=== PATIENT | male | born 1950 | race Caucasian/White ===

== ENCOUNTER → 2020-08-16 07:56 | Outpatient (CLI) | payer OTHER, SELFPAY ==
[2020-07-28 11:48] VITALS: BMI 30.7
--- NOTE | 2020-08-16 12:46 | PFTCOMP ---
COMPLETE PULMONARY FUNCTION TEST INTERPRETATION Brief HPI: Patient is a 70 year old male, currently under the care of myself, who presents to [facility] for complete pulmonary function tests secondary to diagnosis of dyspnea. Respiratory therapist reports good effort and reproducible results. Interpretation: Forced expiration spirometry shows no large airways obstructive ventilatory defect with an FEV1 of 87% predicted. There is no significant bronchodilator response by strict ATS criteria. Spirograms are of good quality and plateau slowly, indicating slowly emptying areas of the lungs. The respiratory flow volume loop shows decreased expiratory flow rates at high lung volumes consistent with small airways obstruction. Lung volumes by body plethysmography show decreased total lung capacity at 6.41 L, 83% predicted. All other lung volumes are reduced symmetrically. Diffusion capacity by carbon monoxide is elevated at 122% predicted. The airway resistance is normal. No previous pulmonary function tests were available for review. Impression: Mild restrictive ventilatory defect with some stigmata of possible small airways disease. Consider asthma with atelectasis with a bronchoprovocation study.
== END ==
PROVIDERS: PCP Family Medicine Geriatric Medicine; Referring Provider Internal Medicine Critical Care Medicine; Visit Provider Internal Medicine Critical Care Medicine
DX: R06.00 Dyspnea, unspecified (principal); R59.0 Localized enlarged lymph nodes
CPT/HCPCS: 94060; 94726; 94729

== ENCOUNTER → 2020-08-17 13:38 | Outpatient (CLI) | payer OTHER, SELFPAY ==
[2020-07-28 11:48] VITALS: BMI 30.7
[2020-08-17 13:45] VITALS: PULSE 100; PULSE 101; PULSE 108; PULSE 67; PULSE 76; PULSE 97; PULSE 99; O2SAT 96; O2SAT 97; O2SAT 98
--- NOTE | 2020-08-17 16:34 | PCM.PSN.6M ---
PSN 6 Minute Walk Test - 6 Minute Walk Test 6 Minute Walk Test: 6 Minute Walk Test PSN:6-Minute Walk Test Start: 08/17/20 13:58 Freq: Status: Active Protocol: [id number].[id number] Document 08/17/20 13:45 (Rec: 08/17/20 14:02 [id number]) 6 Minute Walk Test Date Performed 08/17/20 Time Performed 13:45 Height 6 ft 3 in Weight: 104.326 kg Weight in Pounds 230.[address]: Chandrakant Romero FIO2 (% Oxygen) 21 Assistive device used: None Pre-test Oxygen Delivery Method Room Air Pulse Ox (%) 96 Pulse Rate (60-100 beats/min) 67 Dyspnea Cindy Scale (0-10) 0 Exertion Cindy Scale (6-20) 6 1st minute Oxygen Delivery Method Room Air Pulse Ox (%) 98 Pulse Rate (60-100 beats/min) 108 H 2nd minute Oxygen Delivery Method Room Air Pulse Ox (%) 96 Pulse Rate (60-100 beats/min) 97 3rd minute Oxygen Delivery Method Room Air Pulse Ox (%) 96 Pulse Rate (60-100 beats/min) 100 4th minute Oxygen Delivery Method Room Air Pulse Ox (%) 96 Pulse Rate (60-100 beats/min) 99 5th minute Oxygen Delivery Method Room Air Pulse Ox (%) 96 Pulse Rate (60-100 beats/min) 101 H 6th minute Oxygen Delivery Method Room Air Pulse Ox (%) 97 Pulse Rate (60-100 beats/min) 99 Post-test Oxygen Delivery Method Room Air Pulse Ox (%) 98 Pulse Rate (60-100 beats/min) 76 Dyspnea Cindy Scale (0-10) 1 Exertion Cindy Scale (6-20) 11 Full Laps Walked 20 Partial Lap, Number of Tiles Walked 0 Total Distance Walked (ft) 1180 - Interpretation Interpretation: The patient was able to ambulate 1180 feet over the course of 6 minutes on room air with no assistive devices or breaks. The patient did not experience significant desaturation, but did have a peak heart rate of 108 bpm. These findings are consistent with deconditioning. - Recommendations Recommendations: No supplemental oxygen is indicated at this time.
== END ==
PROVIDERS: PCP Family Medicine Geriatric Medicine; Referring Provider Internal Medicine Critical Care Medicine; Visit Provider Internal Medicine Critical Care Medicine
DX: R59.0 Localized enlarged lymph nodes (principal); R06.00 Dyspnea, unspecified
CPT/HCPCS: 94618